=== PATIENT | female | born 1965 ===

== ENCOUNTER 2019-10-05 22:09 | Emergency (ER) | payer OTHER ==
[2019-10-05] MEDS ORDERED: NS 0.9% 1000 ML** 1,000 ML IV ONE (22:32)
--- NOTE | 2019-10-05 22:34 | ED ---
Altered Mental Status - HPI Summary HPI Summary: Patient brought by [facility] for altered mental status. Patient was found wandering on the road stating that someone was trying to get her. No prior history available on this patient. Patient currently not answering history of present illness questions clearly. Patient is alert, and in no apparent distress. - History Of Current Complaint Chief Complaint: EDAltMentalStatus Stated Complaint: ALTERED MENTAL STATUS PER EMS Hx Obtained From: Patient Onset/Duration: Unknown Severity Currently: Moderate Character: Confusion Aggravating Factor(s): Unknown Alleviating Factor(s): Unknown - Allergies/Home Medications Home Medications: Home Medications NK [No Home Medications Reported] 10/05/19 [History Confirmed 10/05/19] PMH/Surg Hx/FS Hx/Imm Hx Endocrine/Hematology History: Denies: Hx Anticoagulant Therapy Cardiovascular History: Denies: Hx Pacemaker/ICD History: Denies: Hx Dialysis Sensory History: Denies: Hx Eye Prosthesis Opthamlomology History: Denies: Hx Legally Blind EENT History: Denies: Hx Deafness Infectious Disease History: Unable to Obtain/Confirm Infectious Disease History: Denies: Traveled Outside the [place] in Last 30 Days - Family History Known Family History: Positive: Non-Contributory - Social History Alcohol Use: unable to obtain Alcohol Amount: unable to obtain Substance Use Type: Reports: Other Substance Use Comment - Amount & Last Used: unable to obtain Smoking Status (MU): Unknown if Ever Smoked Review of Systems Constitutional: Negative Eyes: Negative ENT: Negative Cardiovascular: Negative Respiratory: Negative Gastrointestinal: Negative Genitourinary: Negative Musculoskeletal: Negative Skin: Negative Neurological: Negative Psychological: Normal All Other Systems Reviewed And Are Negative: Yes Physical Exam Triage Information Reviewed: Yes Vital Signs On Initial Exam: Initial Vitals Temp Pulse Resp BP Pulse Ox 98.7 F 68 17 190/101 93 10/05/19 22:14 10/05/19 22:14 10/05/19 22:14 10/05/19 22:14 10/05/19 22:14 Vital Signs Reviewed: Yes Appearance: Positive: Well-Appearing Skin: Positive: Warm Head/Face: Positive: Normal Head/Face Inspection Eyes: Positive: Normal Neck: Positive: Supple Respiratory/Lung Sounds: Positive: Clear to Auscultation Cardiovascular: Positive: Normal Abdomen Description: Positive: Nontender Musculoskeletal: Positive: Normal Neurological: Positive: Normal Psychiatric: Positive: Other AVPU Assessment: Alert - Mynor Coma Scale Best Eye Response: 4 - Spontaneous Best Motor Response: 6 - Obeys Commands Best Verbal Response: 5 - Oriented Coma Scale Total: 15 Procedures - Sedation Patient Received Moderate/Deep Sedation with Procedure: No Diagnostics - Vital Signs Vital Signs Temp Pulse Resp BP Pulse Ox 10/05/19 22:14 98.7 F 68 17 190/101 93 - Laboratory Result Diagrams: 10/05/19 23:15 10/05/19 23:15 Lab Statement: Any lab studies that have been ordered have been reviewed, and results considered in the medical decision making process. Altered Mental Statu Course/Dx - Course Course Of Treatment: Patient brought by [facility] for altered mental status. Patient was found wandering on the road stating that someone was trying to get her. No prior history available on this patient. Patient currently not answering history of present illness questions clearly. Patient is alert, and in no apparent distress. Vital signs within normal limits. Labs unremarkable. CT brain unremarkable. Drug screen negative. UA negative. EtOH negative. 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 Neuro exam normal. Ambulates normally. Discharged in stable condition. EKG sinus rhythm, heart rate 66, no prior EKG on file. - Diagnoses Provider Diagnoses: Altered mental status Discharge ED - Sign-Out/Discharge Documenting (check all that apply): Patient Departure - Discharge Plan Condition: Stable Disposition: HOME Patient Education Materials: Altered Mental Status (ED) Referrals: No Primary Care Phys,NOPCP [Primary Care Provider] - [facility] [Outside] Additional Instructions: Follow-up with your primary care doctor. Return to the ED for any new or worsening symptoms. - Billing Disposition and Condition Condition: STABLE Disposition: Home
[2019-10-05 23:27] LABS: ABS Basophils 0.1 10^3/ul (0-0.2); ABS Lymphocytes 2.8 10^3/ul (1.0-4.8); ABS Monocytes 0.7 10^3/ul (0-0.8); ABS Neutrophils 6.9 10^3/ul (1.5-7.7); Eosinophil % 0.1 %; Hematocrit 44 % (35-47); Hemoglobin 15.1 g/dL (12.0-16.0); Lymphocyte % 27.1 %; Mean Corpuscular HGB Conc 34 g/dL (31-36); Mean Corpuscular Hemoglobin 31 pg (27-31); Mean Corpuscular Volume 90 fL (80-97); Mean Platelet Volume 7.5 fL (7.4-10.4); Platelet Count 241 10^3/uL (150-450); Red Blood Count 4.92 10^6 /uL (3.70-4.87); Red Cell Distribution Width 13 % (10-15); White Blood Count 10.5 10^3/uL (3.5-10.8)
[2019-10-05 23:47] LABS: ALT 21 U/L (7-52); AST 17 U/L (13-39); Albumin 4.5 g/dL (3.2-5.2); Albumin/Globulin Ratio 1.5 (1-3); Alkaline Phosphatase 60 U/L (34-104); Anion Gap 7 mmol/L (2-11); BUN/Creatinine Ratio 12.6 (8-20); Blood Urea Nitrogen 11 mg/dL (6-24); C Reactive Protein < 1.00 mg/L (<8.01); CO2 Carbon Dioxide 32 mmol/L (22-32); Calcium 9.8 mg/dL (8.6-10.3); Chloride 104 mmol/L (101-111); EGFR African American 82.7 (>60); EGFR Non-African American 68.4 (>60); Globulin 3.1 g/dL (2-4); Glucose 109 mg/dL (70-100); Magnesium 2.2 mg/dL (1.9-2.7); Potassium 2.9 mmol/L (3.5-5.0); Sodium 143 mmol/L (135-145); Total Protein 7.6 g/dL (6.4-8.9)
[2019-10-05 23:49] LABS: Troponin I 0.01 ng/mL (<0.04)
[2019-10-05] MEDS ORDERED: Potassium Chlor TAB* 20 MEQ TAB.ER PO ONE (23:50)
[2019-10-06 00:02] LABS: Alcohol < 10 mg/dL (<10); Salicylate < 2.50 mg/dL (<30)
[2019-10-06 00:17] LABS: TSH (Thyroid Stimulating Horm) 0.96 mcIU/mL (0.34-5.60)
[2019-10-06 01:13] LABS: Urine Appearance Cloudy; Urine Bacteria 1+ (Absent); Urine Bilirubin Negative (Negative); Urine Blood 1+ (Negative); Urine Color Yellow; Urine Glucose Negative (Negative); Urine Ketones 1+ (Negative); Urine Nitrite Negative (Negative); Urine Protein Negative (Negative); Urine Red Blood Cell 2+(6-10/hpf) (Absent); Urine Specific Gravity 1.023 (1.010-1.030); Urine Squamous Epithelial Cell Present (Absent); Urine Urobilinogen Negative (Negative); Urine White Blood Cell Trace(0-5/hpf) (Absent)
[2019-10-06 01:24] LABS: Urine Benzodiazepine Screen None Detected (None Detect); Urine Opiates Screen None Detected (None Detect)
[2019-10-06 01:38] VITALS: BP 0/0
== END 2019-10-06 01:35 | disposition home or self-care (01) ==
LOC: ED 22:09
DX: R41.82 Altered mental status, unspecified (principal); R94.31 Abnormal electrocardiogram [ECG] [EKG]
CPT/HCPCS: 36415; 70450; 80053; 80307; 80320; 80329; 81003; 81015; 83735; 84443; 84484; 85025; 86140; 87086; 93005; 96360; 96361; 99282; A9270-GY; G0480